=== PATIENT | male | born 1970 | race African-American/Black ===

== ENCOUNTER 2020-12-25 12:35 | Emergency (ER) | payer OTHER ==
[~2020-12-25] VITALS: Ht 167.6 cm; Wt 68.0 kg
[2020-12-25 12:35] VITALS: BP 135/87
[2020-12-25] MEDS ORDERED: KETOROLAC 30 MG/ML VIAL IM ONE (13:15)
[2020-12-25] MEDS ORDERED: NAPR-1704 PO (13:45)
[2020-12-25 13:58] VITALS: BP 135/87
== END 2020-12-25 13:59 | disposition home or self-care (01) ==
LOC: MED 12:35
DX: G44.209 Tension-type headache, unspecified, not intractable (principal); Z88.0 Allergy status to penicillin; Z79.899 Other long term (current) drug therapy
CPT/HCPCS: 96372; 99283; J1885